=== PATIENT | female | born 1985 | race Caucasian/White ===

== ENCOUNTER 2019-12-07 02:59 | Emergency (ER) | payer MEDICAID ==
[~2019-12-07] VITALS: Ht 172.7 cm; Wt 60.0 kg
[~2019-12-07 02:59] MED LIST: DIPH25CA83; DIVA-18
[2019-12-07 03:04] VITALS: BP 138/72
[2019-12-07] MEDS ORDERED: ALPRAZOLAM 0.25 MG TABLET PO ONE (04:15)
== END 2019-12-07 04:57 | disposition left against medical advice (07) ==
LOC: ER 02:59
DX: F41.9 Anxiety disorder, unspecified (principal); R20.2 Paresthesia of skin; R03.0 Elevated blood-pressure reading, without diagnosis of hypertension; F31.9 Bipolar disorder, unspecified
CPT/HCPCS: 99283